=== PATIENT | male | born 1955 | race Caucasian/White ===

== ENCOUNTER 2016-06-02 20:31 | Emergency (ER) | payer SELFPAY ==
[2016-06-03 00:42] LABS: HEMOGLOBIN 15.5 gm/dl (14.0-17.5); RED BLOOD COUNT 4.76 M/UL (4.20-5.50); WHITE BLOOD COUNT 9.1 K/UL (4.5-11.0)
[2016-06-03 01:05] LABS: BUN/CREATININE RATIO 13 (0-10)
== END 2016-06-03 02:05 | disposition home or self-care (01) ==
LOC: ER1 20:31
PROVIDERS: Student in an Organized Health Care Education/Training Program
DX: J44.1 Chronic obstructive pulmonary disease with (acute) exacerbation (principal); I25.2 Old myocardial infarction; I10 Essential (primary) hypertension; F17.210 Nicotine dependence, cigarettes, uncomplicated; Z88.0 Allergy status to penicillin; Z95.5 Presence of coronary angioplasty implant and graft
CPT/HCPCS: 36415; 36600; 71020; 80053; 82550; 82553; 82803; 83874; 84484; 85025; 93005; 96374; 99285; J2930

== ENCOUNTER → 2020-03-27 | Outpatient (CLI) | payer MEDICARE, OTHER ==
[~2020-03-27] MED LIST: ACIDOPHILUS CA1 EACH PO; ALBUTEROL2.5 MG/3 M INH; ASPIRIN EC81 MG PO; AUGMENTIN 875-1 EACH PO; AZITHROMYCIN250 MG PO; BENZONATATE200 MG PO; BUMEX 1MG TABLET1 MG PO; CIPRO500 MG PO; CLEOCIN 150MG150 MG PO; COREG 3.125M3.125 MG PO; COZAAR 50MG TAB50 MG PO; DOK100 MG PO; ECOTRIN81 MG PO; ENULOSE10 GM/15 M PO; EPOGEN20000 UNIT INJ; FEOSOL325 MG PO; IPRAT-ALBUT 0.5-3 ML INH; LIPITOR80 MG PO; LOPRESSOR 25 MG25 MG PO; MEROPENEM500 MG IV; METOPROLOL SUCC25 MG PO; NICODERM CQ1 EAC2 TD; PLAVIX 75 MG TA75 MG PO; PLAVIX75 MG PO; PROTONIX40 MG PO; PULMICORT0.25 MG/1 INH; SENNA8.6 MG PO; SYMBICORT 160-1 INHA INH; SYNTHROID125 MCG PO; SYNTHROID88 MCG PO; TESSALON PERLE100 MG PO; TYLENOL 500 MG500 MG PO; VENTOLIN HFA 66.7 GM INH; ZESTRIL2.5 MG PO; ZOCOR20 MG PO; ZYVOX600 MG PO
[2020-03-27 13:51] LABS: HEMOGLOBIN 14.9 gm/dl (14.0-17.5); RED BLOOD COUNT 4.83 M/UL (4.20-5.50); WHITE BLOOD COUNT 8.2 K/UL (4.5-11.0)
[2020-03-27 14:17] LABS: BUN/CREATININE RATIO 17 (0-10)
== END ==
LOC: LAB 13:00
PROVIDERS: Family Medicine
DX: I10 Essential (primary) hypertension (principal); M25.562 Pain in left knee; M25.561 Pain in right knee; E03.9 Hypothyroidism, unspecified; E78.5 Hyperlipidemia, unspecified
CPT/HCPCS: 36415; 73564; 80053; 80061; 84439; 84443; 84550; 85027

== ENCOUNTER → 2020-05-17 | Outpatient (CLI) | payer MEDICARE, OTHER | LOC: ECHO 10:34 → NM 13:00 | DX: R06.02 Shortness of breath (principal); R35.1 Nocturia; Z12.5 Encounter for screening for malignant neoplasm of prostate; E03.9 Hypothyroidism, unspecified; I51.7 Cardiomegaly; I21.09 ST elevation (STEMI) myocardial infarction involving other coronary artery of anterior wall | CPT/HCPCS: ECHO; 36415; 78452; 84439; 84443; 93017; 93306; A9502; G0103; J2785 ==

== ENCOUNTER 2020-06-20 07:14 | Outpatient (CLI) | payer MEDICARE, OTHER ==
[~2020-06-20] VITALS: Ht 175.3 cm; Wt 62.6 kg
[~2020-06-20 07:14] MED LIST changes: -COZAAR 50MG TAB50 MG PO; -IPRAT-ALBUT 0.5-3 ML INH; -PLAVIX75 MG PO
[2020-06-20] MEDS ORDERED: COZAAR 50MG TAB50 MG PO ×2 (08:12→12:14)
[2020-06-20 08:16] LABS: HEMOGLOBIN 14.5 gm/dl (14.0-17.5); RED BLOOD COUNT 4.96 M/UL (4.20-5.50); WHITE BLOOD COUNT 7.3 K/UL (4.5-11.0)
[2020-06-20 08:46] LABS: BUN/CREATININE RATIO 16 (0-10)
[2020-06-20] MEDS ORDERED: PLAVIX75 MG PO (12:14)
[2020-06-20] MEDS ORDERED: IPRAT-ALBUT 0.5-3 ML INH (12:31)
[2020-06-21 03:00] LABS: HEMOGLOBIN 12.5 gm/dl (14.0-17.5); RED BLOOD COUNT 4.12 M/UL (4.20-5.50)
[2020-06-21] MEDS ORDERED: LOPRESSOR 25 MG25 MG PO (08:41)
[2020-06-21] MEDS ORDERED: COZAAR 50MG TAB50 MG PO (08:41)
== END 2020-06-21 11:19 | disposition home or self-care (01) ==
LOC: CATH 07:14 → PROG CARE 11:26 → CATH 06-21 11:19
PROVIDERS: Internal Medicine Cardiovascular Disease
DX: I25.119 Atherosclerotic heart disease of native coronary artery with unspecified angina pectoris (principal); I25.5 Ischemic cardiomyopathy; J44.9 Chronic obstructive pulmonary disease, unspecified; J30.9 Allergic rhinitis, unspecified; M19.90 Unspecified osteoarthritis, unspecified site; E78.5 Hyperlipidemia, unspecified; E78.00 Pure hypercholesterolemia, unspecified; E03.9 Hypothyroidism, unspecified; Z87.891 Personal history of nicotine dependence; I13.10 Hypertensive heart and chronic kidney disease without heart failure, with stage 1 through stage 4 chronic kidney disease, or unspecified chronic kidney disease; N18.9 Chronic kidney disease, unspecified; Z88.0 Allergy status to penicillin; Z95.1 Presence of aortocoronary bypass graft
CPT/HCPCS: 36221; 36415; 71045; 75710; 80048; 85025; 85347; 85610; 85730; 93005; 93571; 94664; 94760; 99152; 99153; C1769; C1894; J1644; J2250; Q9965

== ENCOUNTER → 2020-06-29 | Outpatient (CLI) | payer MEDICARE, OTHER ==
[~2020-06-29] MED LIST changes: +COZAAR 50MG TAB50 MG PO; +IPRAT-ALBUT 0.5-3 ML INH; +PLAVIX75 MG PO
== END ==
LOC: KOH-I 10:00
DX: R51.9 Headache, unspecified (principal)
CPT/HCPCS: 70450

== ENCOUNTER → 2020-07-18 | Outpatient (CLI) | payer MEDICARE, OTHER | LOC: HEART 5 11:10 | DX: J44.9 Chronic obstructive pulmonary disease, unspecified (principal) | CPT/HCPCS: 94060; 94729 ==

== ENCOUNTER → 2020-08-16 | Outpatient (CLI) | payer MEDICARE, OTHER ==
[2020-08-16 15:17] LABS: HEMOGLOBIN 13.8 gm/dl (14.0-17.5); RED BLOOD COUNT 4.42 M/UL (4.20-5.50); WHITE BLOOD COUNT 7.2 K/UL (4.5-11.0)
[2020-08-16 15:34] LABS: BUN/CREATININE RATIO 14 (0-10)
== END ==
LOC: LAB 14:05
PROVIDERS: Family Medicine
DX: M25.511 Pain in right shoulder (principal); E03.9 Hypothyroidism, unspecified; I10 Essential (primary) hypertension; E78.5 Hyperlipidemia, unspecified; R93.7 Abnormal findings on diagnostic imaging of other parts of musculoskeletal system
CPT/HCPCS: 36415; 73030; 80053; 80061; 84439; 84443; 85027

== ENCOUNTER → 2020-09-04 | Outpatient (CLI) | payer MEDICARE, OTHER | LOC: HEART 5 14:18 | DX: R06.02 Shortness of breath (principal); I42.9 Cardiomyopathy, unspecified; I08.0 Rheumatic disorders of both mitral and aortic valves | CPT/HCPCS: 93306 ==

== ENCOUNTER → 2020-09-25 | Outpatient (CLI) | payer MEDICARE, OTHER ==
[~2020-09-25] MED LIST changes: +HYDROCODON-ACE1 EAC4 PO; +LAMISIL TAB 25250 MG PO; +LEVOFLOXACIN500 MG PO; +NAFTIN TOP; +NITROGLYCERIN0.4 MG SL; +TYLENOL EXTRA500 MG PO
== END ==
LOC: LAB 15:16
DX: E03.9 Hypothyroidism, unspecified (principal)
CPT/HCPCS: 84439; 84443

== ENCOUNTER → 2020-10-08 | Outpatient (CLI) | payer MEDICARE, OTHER ==
[~2020-10-08] MED LIST changes: +CLINDAMYCIN HC300 MG PO
== END ==
LOC: RAD 16:08
DX: M54.5 Low back pain (principal); G89.29 Other chronic pain; M43.17 Spondylolisthesis, lumbosacral region; M48.061 Spinal stenosis, lumbar region without neurogenic claudication; M48.07 Spinal stenosis, lumbosacral region; M25.78 Osteophyte, vertebrae
CPT/HCPCS: 72110

== ENCOUNTER → 2020-11-09 | Outpatient (CLI) | payer MEDICARE, OTHER ==
[~2020-11-09] MED LIST changes: -CLINDAMYCIN HC300 MG PO; -HYDROCODON-ACE1 EAC4 PO; -LAMISIL TAB 25250 MG PO; -LEVOFLOXACIN500 MG PO; -NAFTIN TOP; -NITROGLYCERIN0.4 MG SL; -TYLENOL EXTRA500 MG PO
[2020-11-09 13:48] LABS: HEMOGLOBIN 14.9 gm/dl (14.0-17.5); RED BLOOD COUNT 4.62 M/UL (4.20-5.50); WHITE BLOOD COUNT 8.2 K/UL (4.5-11.0)
== END ==
LOC: LAB 13:05
PROVIDERS: Internal Medicine Cardiovascular Disease
DX: I11.0 Hypertensive heart disease with heart failure (principal); I50.22 Chronic systolic (congestive) heart failure; I25.5 Ischemic cardiomyopathy; R06.02 Shortness of breath
CPT/HCPCS: 36415; 71046; 80048; 85025

== ENCOUNTER 2020-11-23 08:23 | Outpatient (CLI) | payer MEDICARE, OTHER ==
[~2020-11-23] VITALS: Ht 175.3 cm; Wt 65.1 kg
[2020-11-23] MEDS ORDERED: LEVOFLOXACIN500 MG PO (09:00)
[2020-11-23] MEDS ORDERED: HYDROCODON-ACE1 EAC4 PO (09:00)
[2020-11-23] MEDS ORDERED: LAMISIL TAB 25250 MG PO (09:22)
[2020-11-23] MEDS ORDERED: NITROGLYCERIN0.4 MG SL (09:23)
[2020-11-23] MEDS ORDERED: NAFTIN TOP (09:26)
[2020-11-23] MEDS ORDERED: COREG 3.125M3.125 MG PO (09:27)
[2020-11-23] MEDS ORDERED: TYLENOL EXTRA500 MG PO (09:29)
[2020-11-23 10:07] LABS: HEMOGLOBIN 14.2 gm/dl (14.0-17.5); RED BLOOD COUNT 4.36 M/UL (4.20-5.50); WHITE BLOOD COUNT 5.8 K/UL (4.5-11.0)
[2020-11-23] MEDS ORDERED: CLINDAMYCIN HC300 MG PO (10:46)
== END 2020-11-24 12:19 | disposition home or self-care (01) ==
LOC: CATH 08:23 → PROG CARE 13:29 → CATH 11-24 12:19
PROVIDERS: Internal Medicine Cardiovascular Disease
DX: I25.5 Ischemic cardiomyopathy (principal); I50.22 Chronic systolic (congestive) heart failure; I49.5 Sick sinus syndrome; I42.0 Dilated cardiomyopathy; I10 Essential (primary) hypertension; I25.10 Atherosclerotic heart disease of native coronary artery without angina pectoris; Z87.891 Personal history of nicotine dependence; Z95.1 Presence of aortocoronary bypass graft; I25.2 Old myocardial infarction; E78.5 Hyperlipidemia, unspecified; Z95.5 Presence of coronary angioplasty implant and graft; I71.4 Abdominal aortic aneurysm, without rupture; M54.50 Low back pain, unspecified; G89.29 Other chronic pain; E03.9 Hypothyroidism, unspecified; Z20.822 Contact with and (suspected) exposure to COVID-19
CPT/HCPCS: 33249; 36415; 71045; 80048; 85025; 93641; 94664; 94760; 99152; 99153; C1721; C1777; C1898; J1200; J1644; J2250; J2270; J2550; J3010; J3370; J7040; J7050; J7070; U0002

== ENCOUNTER → 2020-11-30 | Outpatient (CLI) | payer MEDICARE, OTHER ==
[~2020-11-30] MED LIST changes: +CLEOCIN HCL300 MG PO; +CLINDAMYCIN HC300 MG PO; +HYDROCODON-ACE1 EAC4 PO; +LAMISIL TAB 25250 MG PO; +LEVOFLOXACIN500 MG PO; +NAFTIN TOP; +NITROGLYCERIN0.4 MG SL; +TYLENOL EXTRA500 MG PO
[2020-11-30 10:27] LABS: HEMOGLOBIN 12.7 gm/dl (14.0-17.5); RED BLOOD COUNT 3.94 M/UL (4.20-5.50); WHITE BLOOD COUNT 6.6 K/UL (4.5-11.0)
== END ==
LOC: LAB 09:45
PROVIDERS: Family Medicine
DX: E03.9 Hypothyroidism, unspecified (principal); E78.5 Hyperlipidemia, unspecified; M54.50 Low back pain, unspecified; I10 Essential (primary) hypertension
CPT/HCPCS: 36415; 80053; 80061; 81001; 84439; 84443; 85027

== ENCOUNTER 2020-12-01 15:16 | Emergency (ER) | payer MEDICARE, OTHER ==
[~2020-12-01 15:16] MED LIST changes: -CLEOCIN HCL300 MG PO
[2020-12-01 15:47] LABS: RED BLOOD COUNT 4.03 M/UL (4.20-5.50); WHITE BLOOD COUNT 6.4 K/UL (4.5-11.0)
[2020-12-01] MEDS ORDERED: CLEOCIN HCL300 MG PO (18:23)
== END 2020-12-01 18:50 | disposition home or self-care (01) ==
LOC: ER1 15:16
PROVIDERS: Physician Assistant
DX: T82.897A Other specified complication of cardiac prosthetic devices, implants and grafts, initial encounter (principal); J44.9 Chronic obstructive pulmonary disease, unspecified; Z87.891 Personal history of nicotine dependence
CPT/HCPCS: 71260; 80053; 83605; 85025; 85610; 87040; 96374; 99284; Q9967

== ENCOUNTER 2020-12-14 12:36 | Inpatient (IN) | payer MEDICARE, OTHER ==
[~2020-12-14] VITALS: Ht 175.3 cm; Wt 64.4 kg
[~2020-12-14 12:36] MED LIST changes: +CLEOCIN HCL300 MG PO; -IPRAT-ALBUT 0.5-3 ML INH; +IPRAT-ALBUT 0.5-3 ML NEB; +PROAIR DIGIHAL90 MCG INH; -VENTOLIN HFA 66.7 GM INH
[2020-12-14 16:34] LABS: HEMOGLOBIN 14.2 gm/dl (14.0-17.5); RED BLOOD COUNT 4.4 M/UL (4.20-5.50); WHITE BLOOD COUNT 9.3 K/UL (4.5-11.0)
[2020-12-14 16:41] LABS: BUN/CREATININE RATIO 21 (0-10)
[2020-12-14] MEDS ORDERED: COZAAR50 MG PO (17:41)
[2020-12-14] MEDS ORDERED: ANORO ELLIPTA1 EACH INH (17:42)
[2020-12-14] MEDS ORDERED: LORATADINE10 MG PO (17:43)
--- NOTE | 2020-12-15 01:39 | NUR ---
per pt request covered infection site with a gauze dressing and microbore tape. no other needs at this time. pt able to reposition himself. ambulated to bathroom without assistance.
[2020-12-15 06:20] LABS: HEMOGLOBIN 14.5 gm/dl (14.0-17.5); RED BLOOD COUNT 4.58 M/UL (4.20-5.50)
[2020-12-15 06:21] LABS: WHITE BLOOD COUNT 6.6 K/UL (4.5-11.0)
--- NOTE | 2020-12-16 06:09 | NUR ---
pt iv was switched during the night manager due to leaving from [facility]. he now has an iv in the right ac. vancomycin morning dose not provided at 0600 am due to lab draw was not scheduled until 6am. Lab currently on floor drawing units floor now. dressing over pacemaker was also changed with a gauze dressing and microbore tape. no other needs at this time.
[2020-12-16 06:51] LABS: BUN/CREATININE RATIO 27 (0-10)
[2020-12-17 05:15] LABS: BUN/CREATININE RATIO 27 (0-10)
--- NOTE | 2020-12-17 09:09 | NUR ---
PT SIGNED CONSENT FOR ICD REMOVAL. UNIVERSAL PROTOCOL COMPLETED.
--- NOTE | 2020-12-17 10:20 | NUR ---
PT RETURNED FROM OR WITH BULKY DSG TO LEFT CHEST WALL FROM ICD REMOVAL. NO BLEEDING NOTED AND PT DENIES NEEDS OR C/O AT THID TIME.
[2020-12-17] MEDS ORDERED: LEVOFLOXACIN500 MG PO (12:05)
[2020-12-17] MEDS ORDERED: CLINDAMYCIN HC300 MG PO (12:05)
[2020-12-17] MEDS ORDERED: HYDROCODON-ACE1 EAC4 PO (12:05)
[2020-12-17] MEDS ORDERED: ZYVOX600 MG PO (13:30)
[2020-12-18 06:53] LABS: BUN/CREATININE RATIO 23 (0-10)
--- NOTE | 2020-12-18 18:04 | NUR ---
AWAITING [employer] FOR PT TO BE DISCHARGED.
--- NOTE | 2020-12-18 19:11 | NUR ---
SPOKE WITH [employer] DEPARTMENT SUPERVISOR, YAHIR, AND SHE STATED THAT THE [employer] WAS STILL IN REVIEW FOR PENDING INSURANCE APPROVAL. SHE STATED THAT IT WOULD PROBABLY BE TOMORROW BEFORE PT COULD GET HIS L[employer].
== END 2020-12-19 11:38 | disposition home or self-care (01) | DRG 857 ==
LOC: ER1 12:36 → MED SURG 4 16:33 → CDU 16:33 → MED SURG 4 18:08
PROVIDERS: Physician Assistant; ADMIT Internal Medicine
PROC: 0JPT0PZ Removal of Cardiac Rhythm Related Device from Trunk Subcutaneous Tissue and Fascia, Open Approach (ICD-10-PCS; principal; 2020-12-17)
PROC: 02PA3MZ Removal of Cardiac Lead from Heart, Percutaneous Approach (ICD-10-PCS; 2020-12-17)
DX: T81.41XA Infection following a procedure, superficial incisional surgical site, initial encounter (principal); I50.22 Chronic systolic (congestive) heart failure; T81.31XA Disruption of external operation (surgical) wound, not elsewhere classified, initial encounter; L03.313 Cellulitis of chest wall; Z20.822 Contact with and (suspected) exposure to COVID-19; I11.0 Hypertensive heart disease with heart failure; I25.5 Ischemic cardiomyopathy; Y83.8 Other surgical procedures as the cause of abnormal reaction of the patient, or of later complication, without mention of misadventure at the time of the procedure; I25.10 Atherosclerotic heart disease of native coronary artery without angina pectoris; D64.9 Anemia, unspecified; E78.5 Hyperlipidemia, unspecified; I49.5 Sick sinus syndrome; F10.10 Alcohol abuse, uncomplicated; E03.9 Hypothyroidism, unspecified; F17.210 Nicotine dependence, cigarettes, uncomplicated; J44.9 Chronic obstructive pulmonary disease, unspecified; Z79.01 Long term (current) use of anticoagulants; Z79.82 Long term (current) use of aspirin; Z79.899 Other long term (current) drug therapy; Z95.1 Presence of aortocoronary bypass graft; I25.2 Old myocardial infarction; Z87.442 Personal history of urinary calculi; Z95.5 Presence of coronary angioplasty implant and graft; Z88.0 Allergy status to penicillin; Z82.49 Family history of ischemic heart disease and other diseases of the circulatory system; Z80.1 Family history of malignant neoplasm of trachea, bronchus and lung
CPT/HCPCS: 33241; 33244; 36415; 71045; 80048; 80053; 80202; 83605; 85025; 87040; 87070; 87205; 93005; 94640; 94664; 94760; 99152; 99153; 99285; J0692; J1644; J2250; J2270; J3010; J3370; J7030; J7040; J7050; J7070; U0002

== ENCOUNTER → 2021-05-01 | Outpatient (CLI) | payer MEDICARE, OTHER ==
[~2021-05-01] MED LIST changes: +ANORO ELLIPTA1 EACH INH; +COZAAR50 MG PO; +LORATADINE10 MG PO
[2021-05-01 12:22] LABS: HEMOGLOBIN 14.5 gm/dl (14.0-17.5); RED BLOOD COUNT 4.96 M/UL (4.20-5.50); WHITE BLOOD COUNT 6.9 K/UL (4.5-11.0)
[2021-05-01 12:31] LABS: BUN/CREATININE RATIO 15 (0-10)
== END ==
LOC: LAB 11:21
PROVIDERS: Internal Medicine Cardiovascular Disease
DX: E78.5 Hyperlipidemia, unspecified (principal); I50.22 Chronic systolic (congestive) heart failure; I25.5 Ischemic cardiomyopathy; I25.10 Atherosclerotic heart disease of native coronary artery without angina pectoris; Z20.822 Contact with and (suspected) exposure to COVID-19; R91.8 Other nonspecific abnormal finding of lung field
CPT/HCPCS: 36415; 71046; 80048; 85025; U0003

== ENCOUNTER 2021-05-31 08:41 | Outpatient (CLI) | payer MEDICARE, OTHER ==
[~2021-05-31] VITALS: Ht 175.3 cm; Wt 63.5 kg
[2021-05-31 10:08] LABS: BUN/CREATININE RATIO 13 (0-10)
[2021-05-31] MEDS ORDERED: CLINDAMYCIN HC150 MG PO (10:15)
[2021-05-31] MEDS ORDERED: IPRAT-ALBUT 0.5-3 ML INH (10:15)
[2021-05-31] MEDS ORDERED: FUROSEMIDE20 MG PO (10:17)
[2021-05-31 13:05] LABS: HEMOGLOBIN 13.4 gm/dl (14.0-17.5); RED BLOOD COUNT 4.46 M/UL (4.20-5.50); WHITE BLOOD COUNT 5.9 K/UL (4.5-11.0)
[2021-05-31] MEDS ORDERED: HYDROCODON-ACE1 EAC4 PO (15:29)
[2021-05-31] MEDS ORDERED: LEVOFLOXACIN500 MG PO (15:29)
[2021-05-31] MEDS ORDERED: CLINDAMYCIN HC300 MG PO (15:29)
== END 2021-06-01 12:21 | disposition home or self-care (01) ==
LOC: CATH 08:41 → PROG CARE 15:46 → CATH 06-01 12:21
PROVIDERS: Internal Medicine Cardiovascular Disease
DX: I50.22 Chronic systolic (congestive) heart failure (principal); I25.5 Ischemic cardiomyopathy; I25.2 Old myocardial infarction; I49.5 Sick sinus syndrome; I25.10 Atherosclerotic heart disease of native coronary artery without angina pectoris; Z95.1 Presence of aortocoronary bypass graft; Z87.891 Personal history of nicotine dependence; Z20.822 Contact with and (suspected) exposure to COVID-19
CPT/HCPCS: 33249; 36415; 71045; 80048; 85025; 93641; 94640; 94664; 94760; 99152; 99153; C1721; C1777; C1898; J1644; J2250; J3010; J3370; J7040; J7050; J7070; Q9965

== ENCOUNTER → 2021-06-26 | Outpatient (CLI) | payer MEDICARE, OTHER ==
[~2021-06-26] VITALS: Ht 165.1 cm; Wt 65.3 kg
[~2021-06-26] MED LIST changes: +CLINDAMYCIN HC150 MG PO; +FUROSEMIDE20 MG PO; +IPRAT-ALBUT 0.5-3 ML INH
== END | disposition home or self-care (01) ==
LOC: OPSV 11:58
PROC: 02HV33Z Insertion of Infusion Device into Superior Vena Cava, Percutaneous Approach (ICD-10-PCS; principal; 2021-06-26)
DX: T80.212A Local infection due to central venous catheter, initial encounter (principal); I25.10 Atherosclerotic heart disease of native coronary artery without angina pectoris; Y71.1 Therapeutic (nonsurgical) and rehabilitative cardiovascular devices associated with adverse incidents; Z79.02 Long term (current) use of antithrombotics/antiplatelets; Z79.51 Long term (current) use of inhaled steroids; Z79.82 Long term (current) use of aspirin; Z79.890 Hormone replacement therapy; Z79.899 Other long term (current) drug therapy; Z88.0 Allergy status to penicillin
CPT/HCPCS: 87040; 96365; 96366; 96367; C1751; J0878; J3370; J7070

== ENCOUNTER → 2021-07-25 | Outpatient (CLI) | payer MEDICARE, OTHER | LOC: OPSV 10:42 | DX: T82.7XXA Infection and inflammatory reaction due to other cardiac and vascular devices, implants and grafts, initial encounter (principal) | CPT/HCPCS: G0463 ==

== ENCOUNTER → 2021-08-27 | Outpatient (CLI) | payer MEDICARE, OTHER ==
[2021-08-27 16:24] LABS: HEMOGLOBIN 12.3 gm/dl (14.0-17.5); RED BLOOD COUNT 4.04 M/UL (4.20-5.50); WHITE BLOOD COUNT 5.9 K/UL (4.5-11.0)
[2021-08-27 16:49] LABS: BUN/CREATININE RATIO 19 (0-10)
== END ==
LOC: LAB 15:18
PROVIDERS: Family Medicine
DX: E03.9 Hypothyroidism, unspecified (principal); I10 Essential (primary) hypertension; E78.5 Hyperlipidemia, unspecified
CPT/HCPCS: 36415; 80053; 80061; 83735; 84439; 84443; 85027

== ENCOUNTER → 2021-11-21 | Outpatient (CLI) | payer MEDICARE, OTHER ==
[2021-11-21 17:34] LABS: HEMOGLOBIN 13.9 gm/dl (14.0-17.5); RED BLOOD COUNT 4.49 M/UL (4.20-5.50); WHITE BLOOD COUNT 7.5 K/UL (4.5-11.0)
== END ==
LOC: LAB 16:41
PROVIDERS: Family Medicine
DX: D64.9 Anemia, unspecified (principal)
CPT/HCPCS: 36415; 82607; 82728; 82746; 83540; 83550; 85025